=== PATIENT | male | born 1940 ===

== ENCOUNTER → 2017-05-25 | Emergency (ER) | payer OTHER ==
[~2017-05-25] VITALS: Ht 172.7 cm; Wt 96.2 kg
[~2017-05-25] MED LIST: CIPRO500 MG PO; FLAGYL500MG PO; GLIMEPIRIDE4 MG PO; HUMULIN 70100 UNIT/1; IMODIUM A-D2 MG PO; INTEGRA F CAPS1 EACH PO; INTESTINEX PO; INTESTINEX680 MG PO; LANTUS SOLOSTAR3 ML; LEVO-T50 MCG PO; LIPITOR20 MG PO; LOPRESSOR25 MG PO; METFORMIN HCL1000 M1 PO; MIRALAX17 GM PO; NEURONTIN300 MG PO; OXYC1TAB9 PO; PERCOCET 5-3251 EACH PO; PLAVIX75 MG PO; PREVACID30 MG PO; TAMS0.4C PO; TOPROL XL50 M1 PO; XARELTO15 MG PO
== END | disposition home or self-care (01) ==
LOC: ER 18:10
DX: K45.8 Other specified abdominal hernia without obstruction or gangrene (principal)

== ENCOUNTER 2017-06-01 09:19 | Outpatient (CLI) | payer OTHER ==
[~2017-06-01 09:19] MED LIST changes: -MIRALAX17 GM PO; -NEURONTIN300 MG PO; -PERCOCET 5-3251 EACH PO; -PLAVIX75 MG PO
== END 2017-06-01 09:46 | disposition home or self-care (01) ==
LOC: LAB 09:19
DX: K43.2 Incisional hernia without obstruction or gangrene (principal)

== ENCOUNTER → 2017-06-01 | Outpatient (CLI) | payer OTHER | END | disposition home or self-care (01) | LOC: LAB 09:31 | DX: K43.2 Incisional hernia without obstruction or gangrene (principal) ==

== ENCOUNTER 2017-06-04 12:30 | Inpatient (IN) | payer OTHER ==
[~2017-06-04] VITALS: Ht 172.7 cm; Wt 99.8 kg
[2017-06-04] MEDS ORDERED: PLAVIX75 MG PO (15:00)
[2017-06-07] MEDS ORDERED: PERCOCET 5-3251 EACH PO (08:22)
[2017-06-07] MEDS ORDERED: NEURONTIN300 MG PO (08:22)
[2017-06-07] MEDS ORDERED: MIRALAX17 GM PO (08:22)
== END 2017-06-08 13:26 | disposition home or self-care (01) | DRG 355 ==
LOC: SURH 06-06 07:00 → O/R 06-06 07:06 → SURH 06-06 07:06
PROVIDERS: Surgery
PROC: 0KX10ZZ Transfer Facial Muscle, Open Approach (ICD-10-PCS; 2017-06-06)
PROC: 0WUF4JZ Supplement Abdominal Wall with Synthetic Substitute, Percutaneous Endoscopic Approach (ICD-10-PCS; principal; 2017-06-06 07:00)
DX: K43.0 Incisional hernia with obstruction, without gangrene (principal); K42.0 Umbilical hernia with obstruction, without gangrene

== ENCOUNTER → 2017-06-13 | Emergency (ER) | payer OTHER ==
[~2017-06-13] VITALS: Ht 172.7 cm; Wt 99.8 kg
[~2017-06-13] MED LIST changes: +MIRALAX17 GM PO; +NEURONTIN300 MG PO; +PERCOCET 5-3251 EACH PO; +PLAVIX75 MG PO
== END | disposition home or self-care (01) ==
LOC: ER 14:03
DX: R06.02 Shortness of breath (principal); J90 Pleural effusion, not elsewhere classified